=== PATIENT | female | born 1965 | race Caucasian/White ===

== ENCOUNTER 2021-09-16 14:18 | Outpatient (REF) | payer MEDICARE, MEDICAID, SELFPAY | END 2021-09-16 14:19 | disposition home or self-care (01) | LOC: HO.LNP 14:18 | PROVIDERS: Visit Provider Physician Assistant | DX: Z20.822 Contact with and (suspected) exposure to COVID-19 (principal) | CPT/HCPCS: U0003; U0005 ==

== ENCOUNTER 2023-01-13 12:02 | Outpatient (REF) | payer MEDICARE, MEDICAID, SELFPAY ==
[2023-01-16 17:48] LABS: Gliadin Deamidated IgA Ab <1.0 U/mL; Gliadin Deamidated IgG Ab <1.0 U/mL
[2023-01-16 23:09] LABS: Immunoglobulin A 346 mg/dL (47-310)
[2023-01-17 18:23] LABS: Transglutaminase Ab IgG <1.0 U/mL; Transglutaminase IgA <1.0 U/mL
[2023-01-18 14:24] LABS: Endomysial IgA Antibody Negative (Negative)
== END 2023-01-13 12:03 | disposition home or self-care (01) ==
LOC: HO.10HDL 12:02
PROVIDERS: Visit Provider Internal Medicine
DX: R19.7 Diarrhea, unspecified (principal)
CPT/HCPCS: 36415; 82784; 86231; 86258; 86364

== ENCOUNTER 2023-03-11 06:11 | Day surgery (SDC) | payer MEDICARE, MEDICAID, SELFPAY ==
--- NOTE | 2023-03-10 09:56 | P.CONAN_ITS ---
Documented by User: Jud Sevilla NP 03/10/23 09:57 HPI - Anesthesia Eval Consult details Narrative: 57yo F for?Colonoscopy PMFSH Past Medical History Medical History (Updated 03/10/23 @ 09:20 by Sasha Kumar RN) Anxiety Cervical cancer Chronic back pain Chronic diarrhea Migraine Surgical History Surgical History (Updated 03/10/23 @ 09:20 by Sasha Kumar RN) H/O cervical spine surgery H/O colonoscopy History of appendectomy History of back surgery Social History Social History Patient Tobacco Use Status: Current everyday Tobacco user Tobacco use type: Cigarette Years Smoked: 20 Smoked in Last 30 Days: Yes Use of substances other than those prescribed or required for medical reasons: No Are you DNR?: No Advance Directives: No Advance Directives Information Provided: Yes Meds Allergies Allergy/AdvReac Type Severity Reaction Status Date / Time aspirin [Aspirin] Allergy Severe RASH/SOB Verified 03/11/23 06:45 codeine [Codeine] Allergy Severe RASH/SOB Verified 03/11/23 06:45 ibuprofen Allergy Severe Palpitation Verified 03/11/23 06:45 s Penicillins [PCN] Allergy Severe Rash Verified 03/11/23 06:45 mri dye Allergy Severe Anaphylaxis Uncoded 03/11/23 06:45 Home Medications Medication Instructions Recorded Confirmed Last Taken Type cyclobenzaprine 5 mg tablet 5 mg PO BID PRN Pain 03/10/23 03/11/23 Unknown History estradiol 0.05 mg/24 hr semiweekly 1 patch topical 2XW 03/10/23 03/11/23 Unknown History transdermal patch lorazepam 0.5 mg tablet 0.5 mg PO DAILY PRN Anxiety 03/10/23 03/11/23 Unknown History oxycodone-acetaminophen 5 mg-325 1 tab PO Q8H PRN pain 03/10/23 03/11/23 Unknown History mg tablet Exam Exam Date and Time: March 10, 2023 0956 Assessment and Plan Assessment Anesthesia Assessment: Chart Reviewed Documented by User: Gianna Roblero MD 03/11/23 07:26 [facility] Past Medical History Medical History (Updated 03/10/23 @ 09:20 by Sasha Kumar, RN) Anxiety Cervical cancer Chronic back pain Chronic diarrhea Migraine Family History Family history of problems with anesthesia: No Surgical History Surgical History (Updated 03/10/23 @ 09:20 by Sasha Kumar RN) H/O cervical spine surgery H/O colonoscopy History of appendectomy History of back surgery History of Problems with Anesthesia: No Social History Social History Patient Tobacco Use Status: Current everyday Tobacco user Tobacco use type: Cigarette Years Smoked: 20 Smoked in Last 30 Days: Yes Use of substances other than those prescribed or required for medical reasons: No Are you DNR?: No Advance Directives: No Advance Directives Information Provided: Yes Meds Allergies Allergy/AdvReac Type Severity Reaction Status Date / Time aspirin [Aspirin] Allergy Severe RASH/SOB Verified 03/11/23 06:45 codeine [Codeine] Allergy Severe RASH/SOB Verified 03/11/23 06:45 ibuprofen Allergy Severe Palpitation Verified 03/11/23 06:45 s Penicillins [PCN] Allergy Severe Rash Verified 03/11/23 06:45 mri dye Allergy Severe Anaphylaxis Uncoded 03/11/23 06:45 Home Medications Medication Instructions Recorded Confirmed Last Taken Type cyclobenzaprine 5 mg tablet 5 mg PO BID PRN Pain 03/10/23 03/11/23 Unknown History estradiol 0.05 mg/24 hr semiweekly 1 patch topical 2XW 03/10/23 03/11/23 Unknown History transdermal patch lorazepam 0.5 mg tablet 0.5 mg PO DAILY PRN Anxiety 03/10/23 03/11/23 Unknown History oxycodone-acetaminophen 5 mg-325 1 tab PO Q8H PRN pain 03/10/23 03/11/23 Unknown History mg tablet Exam Airway Mallampati Class: I TM Dist: >3cm Neck ROM: Full Denture: Upper Assessment and Plan Assessment Anesthesia Assessment: Anesthesia Plan Discussed Final Anesthetic Review Family History of Problems with Anesthesia: No History of Problems with Anesthesia: No NPO: Yes ASA Class: II Final Preanesthetic Review: No Changes in Pt Med Stat, Meds/Allgs Chart Reviewed, Consent Obtained/Reviewed and Anes Risks/Benef Reviewed Patient Risk: Low Anesthetic Plan Anesthetic Plan: MAC: Disposition: Standard PACU
[2023-03-11 06:47] VITALS: BMI 30.1
[2023-03-11 06:55] VITALS: BP 147/80; PULSE 69; RESP 16; TEMP 36.3; O2SAT 96
[2023-03-11] MEDS: Lactated Ringers 1,000 ML 100 ML IVCONT (07:14)
--- NOTE | 2023-03-11 07:15 | PC.NURSE ---
PATIENT TO GO INTO PROCEDURE ROOM WEARING UPPER DENTURES PER DR. WHITTINGTON.
--- NOTE | 2023-03-11 08:28 | PM.OP ---
Brief Operative Note Date of Service: 03/11/23 Pre-op diagnosis: Screening Post-op diagnosis: other (Diverticulosis) Procedure: Colonoscopy to the cecum and TI Surgeon: Celestino Hsieh Anesthesia: MAC Was an Echocardiologist used for this Procedure?: No Estimated blood loss (mL): 0 Pathology: none sent Condition: stable Disposition: PACU
[2023-03-11 08:39] VITALS: BP 95/39; PULSE 66; RESP 17; TEMP 36.4; O2SAT 97
[2023-03-11 08:54] VITALS: BP 116/47; PULSE 58; RESP 16; O2SAT 93
[2023-03-11 09:10] VITALS: BP 117/54; PULSE 62; RESP 16; TEMP 36.4; O2SAT 95
--- NOTE | 2023-03-11 14:28 | OP_ITS ---
DATE OF SERVICE: 03/11/2023 SURGEON: Celestino Hsieh MD INDICATIONS: The patient presents for followup of colorectal cancer screening and prior history of tubular adenoma of the colon. Full consent has been obtained from her for this, including risks of bleeding and perforation. PREOPERATIVE DIAGNOSIS: POSTOPERATIVE DIAGNOSIS: PROCEDURE PERFORMED: Colonoscopy to the cecum and terminal ileum. ESTIMATED BLOOD LOSS: COMPLICATIONS: ANESTHESIA: Monitored anesthesia care. ASSISTANTS: SPECIMENS: PREOPERATIVE DIAGNOSES: Colorectal cancer screening and prior history of tubular adenoma of the colon. POSTOPERATIVE DIAGNOSES: Colorectal cancer screening and prior history of tubular adenoma of the colon, sigmoid diverticulosis, internal hemorrhoids, slight changes of previous radiation enteritis. DESCRIPTION OF PROCEDURE: The patient was placed in the left lateral decubitus position. The digital rectal exam revealed no abnormalities. The Olympus video pediatric colonoscope was entered into the rectum and advanced easily to the cecum. Once in the cecum, I did identify a normal-appearing cecal pouch with appendiceal orifice and a normal-appearing ileocecal valve. The terminal ileum was cannulated and appeared normal. The scope was then withdrawn back in the colon. The entire cecum and ileocecal valve appeared normal. The scope was then slowly withdrawn assessing all mucosal surface carefully. Preparation was excellent. I did not visualize any sign of polyps, colitis, nor angiodysplasias. There is a mild amount of sigmoid diverticulosis. In the sigmoid colon and the rectum were some changes of probable previous radiation with some pallor, edema, and occasional telangiectasias. There was no bleeding. In the rectum, the scope was retroflexed visualizing internal hemorrhoids but no other pathology. The distal rectal mucosa appeared normal. The scope was straightened and withdrawn from the patient. She tolerated the procedure well and was returned to the recovery area in stable condition. IMPRESSION: 1. Sigmoid diverticulosis. 2. Internal hemorrhoids. 3. Slight changes of radiation enteritis. PLAN: Given the only minimal findings in 2013 and today's negative exam, I would recommend a repeat colonoscopy in 10 years for further screening. She will continue her current regimen of the Imodium 3 or 4 times a day, which she reports is working well for her diarrhea. She will see me otherwise on a p.r.n. basis. MD EVELINA Hale/BRAXTON / [id number] MTDD
== END 2023-03-11 09:30 | disposition home or self-care (01) ==
PROVIDERS: PCP Internal Medicine; Visit Provider Internal Medicine
PROC: 0DJD8ZZ Inspection of Lower Intestinal Tract, Via Natural or Artificial Opening Endoscopic (ICD-10-PCS; CPT 45378; principal; 2023-03-11 07:30)
DX: Z12.11 Encounter for screening for malignant neoplasm of colon (principal); K52.0 Gastroenteritis and colitis due to radiation; K57.30 Diverticulosis of large intestine without perforation or abscess without bleeding; K64.8 Other hemorrhoids; R19.7 Diarrhea, unspecified; Z86.010 Personal history of colon polyps
CPT/HCPCS: G0105

== ENCOUNTER 2023-11-27 12:22 | Outpatient (REF) | payer MEDICARE, MEDICAID, SELFPAY | END 2023-11-27 12:23 | disposition home or self-care (01) | LOC: HO.SH 12:22 | PROVIDERS: Visit Provider Internal Medicine | DX: Z01.118 Encounter for examination of ears and hearing with other abnormal findings (principal); H90.3 Sensorineural hearing loss, bilateral | CPT/HCPCS: 92557 ==